=== PATIENT | male | born 1995 | race Caucasian/White ===

== ENCOUNTER 2017-01-10 19:42 | Emergency (ER) | payer MEDICAID ==
[~2017-01-10] VITALS: Ht 172.7 cm; Wt 114.8 kg
[2017-01-10 19:46] VITALS: BP 128/77
[2017-01-10] MEDS ORDERED: LIDOCAINE 2% VISCOUS 15 ML UDC MM ONE (21:30)
== END 2017-01-10 21:55 | disposition home or self-care (01) ==
LOC: ED 21:49
DX: K12.1 Other forms of stomatitis (principal)
CPT/HCPCS: 99283